=== PATIENT | male | born 1955 | race Caucasian/White ===

== ENCOUNTER → 2017-07-30 | Outpatient (CLI) | payer OTHER ==
--- NOTE | 2017-07-30 15:08 | RAD ---
HISTORY: Radiculopathy. Post ACDF Study: AP and lateral cervical spine with flexion and extension Comparison: None Findings: The neutral lateral view demonstrates loss of normal cervical lordosis. Previous ACDF as been perfor med at C3/C4, C4/C5, C5/C6 and C6/C7. There is 1-2 mm of spondylolisthesis of C4 on C5. The prevert ebral soft tissues are normal. The pre odontoid space is normal. The posterior elements are intact. Moderate facet arthropathy is noted bilaterally at C3/C4, C4/C5-C5/C6 with milder degrees elsewhere . The lateral masses C1 are symmetric about the lateral masses C2 and the odontoid process. Flexion and extension are moderately limited. No change in overall alignment is noted. I see no nubia dence of hardware loosening. IMPRESSION: 1. Cervical spondylosis as described above with previous ACDF extending from C3 through C7. 2. Limitation of flexion extension without evidence of instability. 3. No acute bony abnormalities are identified. Reported By:
== END | disposition home or self-care (01) | DRG 552 ==
LOC: RAD 14:16
PROVIDERS: ATTEND Neurological Surgery
DX: M54.2 Cervicalgia (principal); M54.12 Radiculopathy, cervical region
CPT/HCPCS: 72050